=== PATIENT | female | born 2000 | race American Indian/Alaskan Native ===

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

== ENCOUNTER 2019-08-29 18:16 | Emergency (ER) | payer SELFPAY ==
[2019-08-29 19:25] VITALS: BP 130/89
--- NOTE | 2019-08-29 20:05 | Emergency Department Report ---
ED Rash HPI - HPI Chief Complaint: Skin Rash Stated Complaint: RASH ON MOUTH Time Seen by Provider: 08/29/19 20:00 Duration: 2 Days Suspected Cause: Unknown Rash Symptoms: Yes Myalgias (lips chopped), No Itching, No Facial Swelling, No Tongue/Oral Swelling, No Breathing Difficulties, No Choking Sensation, No Wheezing/Dyspnea, No Peeling, No Blistering, No Fever, No Lightheaded, No Malaise Severity: mild Other History: This is a 19-year-old female nontoxic well in appearance with no signs of distress presents to the ED with complaint of dry chopped lips x2 days. Patient denies any swelling, pus, or drainage. Denies any ulcers or lesions. Patient denies any other symptoms. Denies any fever, chills, headache, nausea, vomiting, chest pain or SOB. Denies any other complaints. ED Review of Systems ROS: Stated complaint: RASH ON MOUTH Other details as noted in HPI Constitutional: denies: chills, fever Eyes: denies: eye pain, eye discharge, vision change ENT: denies: ear pain, throat pain Respiratory: denies: cough, shortness of breath, wheezing Cardiovascular: denies: chest pain, palpitations Endocrine: no symptoms reported Gastrointestinal: denies: abdominal pain, nausea, diarrhea Genitourinary: denies: urgency, dysuria, discharge Musculoskeletal: denies: back pain, joint swelling, arthralgia Skin: denies: rash, lesions Neurological: denies: headache, weakness, paresthesias Psychiatric: denies: anxiety, depression Hematological/Lymphatic: denies: easy bleeding, easy bruising ED Past Medical Hx - Past Medical History Hx Hypertension: No Hx Heart Attack/AMI: No Hx Congestive Heart Failure: No Hx Diabetes: No Hx Deep Vein Thrombosis: No Hx Liver Disease: No Hx Renal Disease: No Hx Sickle Cell Disease: No Hx Seizures: No Hx Asthma: Yes (childhood) Hx COPD: No Hx HIV: No - Surgical History Hx Pacemaker: No Hx Internal Defibrillator: No - Social History Smoking Status: Never Smoker Substance Use Type: None - Medications Home Medications: Home Medications Medication Instructions Recorded Confirmed Last Taken Type Docusate Sodium [Colace] 100 mg PO BID PRN #60 capsule 12/06/18 Unknown Rx Ferrous Sulfate [Feosol 325 MG tab] 325 mg PO BID #60 tablet 12/06/18 Unknown Rx Ibuprofen [Motrin] 800 mg PO Q8HR PRN #30 tablet 12/06/18 Unknown Rx oxyCODONE /ACETAMINOPHEN [Percocet 1 tab PO Q6HR PRN #40 tablet 12/06/18 Unknown Rx 5/325] Rash Exam - Exam General: Vital signs noted. No distress. Alert and acting appropriately. HEENT: No Periorbital Edema, No Conjuctival Injection, No Chemosis, No Perioral Edema, No Tongue Edema, No Uvular Edema, No Compromised Airway, No Drooling Lungs: Yes Good Air Exchange (Normal Breath Sounds), No Wheezes, No Ronchi, No Stridor, No Cough, No Labored Respirations, No Retractions, No Use of Accessory Muscles, No Other Abnormal Lung Sounds Heart: Yes Regular, No Murmur Skin: Yes Other (slight dry lips with no ulcers or lesions. no redness. normal exam otherwise.), No Urticarial Rash, No Maculopapular Rash, No Morbilliform rash, No Bulla(e), No Excoriations, No Weeping, No Tenderness, No Erythema, No Edema, No Encrustations Other: Positive: Abdomen Normal, Neurologic Normal, Musculoskeletal Normal ED Course Vital Signs 08/29/19 19:22 Temperature 98.3 F Pulse Rate 85 Respiratory 18 Rate Blood Pressure 130/89 O2 Sat by Pulse 100 Oximetry - Reevaluation(s) Reevaluation #1: 08/29/19 20:02 Patient is speaking in full sentences with no signs of distress noted. ED Medical Decision Making - Medical Decision Making 19-year-old female that presents with nonmedical emergency. Patient is stable and was examined by me. Was educated on support care. Patient was instructed to Follow-up with a primary care doctor in 3-5 days or if symptoms worsen and continue return to emergency room as soon as possible. At time of discharge, the patient does not seem toxic or ill in appearance. No acute signs of distress noted. Patient agrees to discharge treatment plan of care. No further questions noted by the patient. Critical care attestation.: If time is entered above; I have spent that time in minutes in the direct care of this critically ill patient, excluding procedure time. ED Disposition Clinical Impression: Dry lips Disposition: MED SCREENING EXAM-LEFT Is pt being admited?: No Does the pt Need Aspirin: No Condition: Stable Additional Instructions: Follow-up with a primary care doctor in 3-5 days or if symptoms worsen and continue return to emergency room as soon as possible. Referrals: PRIMARY CARE, [Referring] - 3-5 Days JOE SALAZAR MD [Staff Physician] - 3-5 Days [facility] [Outside] - 3-5 Days
== END 2019-08-29 20:30 | disposition left against medical advice (07) ==
LOC: ED 18:16
DX: K13.0 Diseases of lips (principal); J45.909 Unspecified asthma, uncomplicated
CPT/HCPCS: 99281

== ENCOUNTER 2021-04-23 04:19 | Emergency (ER) | payer OTHER ==
[2021-04-23 04:52] VITALS: BP 126/80
[2021-04-23] MEDS ORDERED: SODIUM CHLORIDE 0.9% 1000 ML 1,000 ML IV ONE (04:54)
[2021-04-23] MEDS ORDERED: MORPHINE 4 MG/1 ML INJ IV ONE (04:54)
[2021-04-23] MEDS ORDERED: ONDANSETRON 4 MG/2 ML INJ IV ONE (04:55)
[2021-04-23 05:22] LABS: Basophils % (Auto) 0.3 % (0.0-1.8); Eosinophils # (Auto) 0.1 K/mm3 (0.0-0.4); Eosinophils % (Auto) 0.8 % (0.0-4.3); Hematocrit 34.5 % (30.3-42.9); Lymphocytes # (Auto) 2.6 K/mm3 (1.2-5.4); Lymphocytes % (Auto) 17.3 % (13.4-35.0); Mean Corpuscular HGB Conc 35 % (30-34); Mean Corpuscular Volume 92 fl (79-97); Monocytes % (Auto) 6.7 % (0.0-7.3); Platelet Count 451 K/mm3 (140-440); Red Blood Count 3.74 M/mm3 (3.65-5.03)
[2021-04-23 05:42] LABS: Alanine Aminotransferase 29 units/L (7-56); Albumin 4.1 g/dL (3.9-5); Blood Urea Nitrogen 9 mg/dL (7-17); Calcium 8.4 mg/dL (8.4-10.2); Hemolysis Index 108
[2021-04-23 05:55] LABS: BUN/Creatinine Ratio 18
--- NOTE | 2021-04-23 06:33 | Ultrasound Report ---
ULTRASOUND OBSTETRIC Indication: Severe pelvic pain, vaginal bleeding, 6 weeks gest Findings: There is possible gestational sac without evidence of a pole or yolk sac. This measures about 6 weeks and 3 days. The gestational sac measures about 2 mm in diameter Left ovary is normal and the right ovary contains a cystlike lesion measuring about 2 cm in diameter. There is minimal free pelvic fluid. Impression: Irregular hypoechoic sac within the lower uterine segment without evidence of pole or yolk sac. There is a nonspecific 2 cm cystlike lesion within the right ovary. Ultimately, early ectopic pregna ncy cannot be excluded. Close ultrasound follow-up recommended Minimal free pelvic fluid Signer Name: Christiano Pineda MD Signed: 04/23/2021 6:28 AM Workstation Name: [id number]
--- NOTE | 2021-04-23 06:46 | Emergency Department Report ---
<AILYN ORTIZ - Last Filed: 04/23/21 09:41> ED Female HPI - General Chief complaint: Vaginal Bleeding Stated complaint: POSS MISCARRIAGE - Related Data Previous Rx's Medication Instructions Recorded Last Taken Type Docusate Sodium [Colace] 100 mg PO BID PRN #60 capsule 12/06/18 Unknown Rx Ferrous Sulfate [Feosol 325 MG tab] 325 mg PO BID #60 tablet 12/06/18 Unknown Rx Ibuprofen [Motrin] 800 mg PO Q8HR PRN #30 tablet 12/06/18 Unknown Rx oxyCODONE /ACETAMINOPHEN [Percocet 1 tab PO Q6HR PRN #40 tablet 12/06/18 Unknown Rx 5/325] Allergies Allergy/AdvReac Type Severity Reaction Status Date / Time No Known Allergies Allergy Verified 04/23/21 04:54 ED Past Medical Hx - Medications Home Medications: Home Medications Medication Instructions Recorded Confirmed Last Taken Type Docusate Sodium [Colace] 100 mg PO BID PRN #60 capsule 12/06/18 Unknown Rx Ferrous Sulfate [Feosol 325 MG tab] 325 mg PO BID #60 tablet 12/06/18 Unknown Rx Ibuprofen [Motrin] 800 mg PO Q8HR PRN #30 tablet 12/06/18 Unknown Rx oxyCODONE /ACETAMINOPHEN [Percocet 1 tab PO Q6HR PRN #40 tablet 12/06/18 Unknown Rx 5/325] ED Medical Decision Making - Lab Data Result diagrams: 04/23/21 Unknown 04/23/21 Unknown ED Disposition Clinical Impression: Threatened miscarriage in early , Vaginal bleeding in patient after first trimester, Abdominal pain during in first trimester Disposition: 01 HOME / SELF CARE / HOMELESS Is pt being admited?: No Does the pt Need Aspirin: No Condition: Stable Instructions: Abdominal Pain During , [id number], Threatened Miscarriage, [id number], Vaginal Bleeding During , First Trimester, [id number] Additional Instructions: Please return to the emergency room or follow-up with your APPELLATE LAW CLERK on Monday to have repeat labs and possible repeat ultrasound. You are to be on strict pelvic rest which means no foreign body in vaginal area no extensive lifting jumping standing. No intercourse until you follow-up with your APPELLATE LAW CLERK. Tylenol is the only thing that you can have for pain. Referrals: GARRISON CR MD [Staff Physician] - 3-5 Days Time of Disposition: 09:42 Print Language: LITHUANIAN <ALEXIS COLBERT - Last Filed: 04/25/21 00:02> ED Female HPI - General Source: patient Mode of arrival: Ambulatory Limitations: No Limitations - History of Present Illness Initial comments: Patient is a A1 21-year-old -[place] female with no past medical history and who is approximately 6 weeks gestation presents to the ED with complaint of acute onset persistent severe pelvic pain with heavy vaginal bleeding with blood clots in the last 24 hours. Patient states that the pain is constant, persistent and worsening especially in the last 6 hours such that she has not been able to sleep. Patient denies syncope, dizziness, lightheadedness, dysuria, urinary frequency and urgency, traumatic injury or fall, heavy lifting, fever, chills, cough, sore throat, chest pain or shortness of breath, nausea and vomiting or low back pain. Complaint: vaginal bleeding, pelvic pain, other (Generalized weakness and fatigue) -: Sudden, days(s) (24) Location: suprapubic, other (Vaginal) Severity: severe Severity scale (0 -10): 8 Quality: cramping, sharp Consistency: constant Improves with: none Worsens with: none Are you Now?: Yes (Approximately 6 weeks gestation) Last Menstrual Period: 03/22/21 EDC: 12/27/21 Associated Symptoms: denies other symptoms, vaginal bleeding, abdominal pain (Suprapubic pain). denies: vaginal discharge, nausea/vomiting, fever/chills, headaches, loss of appetite, dysuria, hematuria, rash, seizure, shortness of breath, syncope, other - Related Data Sexually active: Yes : 3 Para: 1 A: 1 ED Review of Systems ROS: Stated complaint: POSS MISCARRIAGE Other details as noted in HPI Constitutional: denies: chills, fever Eyes: denies: eye pain, eye discharge, vision change ENT: denies: ear pain, throat pain Respiratory: denies: cough, shortness of breath, wheezing Cardiovascular: denies: chest pain, palpitations Endocrine: no symptoms reported Gastrointestinal: abdominal pain (Suprapubic pain). denies: nausea, vomiting, diarrhea Genitourinary: abnormal menses (Heavy vaginal bleeding). denies: urgency, dysuria, discharge Musculoskeletal: denies: back pain, joint swelling, arthralgia Skin: denies: rash, lesions Neurological: denies: headache, weakness, paresthesias Psychiatric: denies: anxiety, depression Hematological/Lymphatic: denies: easy bleeding, easy bruising ED Past Medical Hx - Past Medical History Hx Hypertension: No Hx Heart Attack/AMI: No Hx Congestive Heart Failure: No Hx Diabetes: No Hx Deep Vein Thrombosis: No Hx Liver Disease: No Hx Renal Disease: No Hx Sickle Cell Disease: No Hx Seizures: No Hx Asthma: Yes (childhood) Hx COPD: No Hx HIV: No - Surgical History Hx Pacemaker: No Hx Internal Defibrillator: No - Social History Smoking Status: Never Smoker ED Physical Exam - General Limitations: No Limitations General appearance: alert, in no apparent distress - Head Head exam: Present: atraumatic, normocephalic, normal inspection - Eye Eye exam: Present: normal appearance, PERRL, EOMI Pupils: Present: normal accommodation - ENT ENT exam: Present: normal exam, normal orophraynx, mucous membranes moist, TM's normal bilaterally, normal external ear exam - Neck Neck exam: Present: normal inspection, full ROM - Respiratory Respiratory exam: Present: normal lung sounds bilaterally. Absent: respiratory distress, wheezes, rales, rhonchi, chest wall tenderness, accessory muscle use, decreased breath sounds, prolonged expiratory, other - Cardiovascular Cardiovascular Exam: Present: regular rate, normal rhythm, normal heart sounds. Absent: systolic murmur, diastolic murmur, rubs, gallop - GI/Abdominal GI/Abdominal exam: Present: soft, tenderness (Palpable suprapubic tenderness), normal bowel sounds. Absent: distended, guarding, rebound, hyperactive bowel sounds, hypoactive bowel sounds, bruit, pulsatile mass - Bi-manual exam: Present: other (Pelvic exam deferred at this time, patient preference) - Extremities Exam Extremities exam: Present: normal inspection, full ROM, normal capillary refill - Back Exam Back exam: Present: normal inspection, full ROM. Absent: tenderness, CVA tenderness (R), CVA tenderness (L), muscle spasm, paraspinal tenderness, vertebral tenderness - Neurological Exam Neurological exam: Present: alert, oriented X3, CN II-XII intact, normal gait, reflexes normal - Psychiatric Psychiatric exam: Present: normal affect, normal mood, anxious - Skin Skin exam: Present: warm, dry, intact, normal color. Absent: rash ED Course Vital Signs 04/23/21 04:49 Temperature 97.8 F Pulse Rate 74 Respiratory 20 Rate Blood Pressure 126/80 O2 Sat by Pulse 100 Oximetry ED Medical Decision Making - Lab Data Result diagrams: 04/23/21 Unknown 04/23/21 Unknown - Radiology Data Radiology results: report reviewed, image reviewed [facility] [address] [place] [address] Ultrasound Report Signed Patient: JOSIE STACY MR#: [id number] : 2000 Acct:[id number] Age/Sex: 21 / F ADM Date: 04/23/21 Loc: ED Attending Dr: Ordering Physician: DK BERMUDEZ Date of Service: 04/23/21 Procedure(s): US OB transvaginal Accession Number(s): [id number] cc: DK BERMUDEZ ULTRASOUND OBSTETRIC Indication: Severe pelvic pain, vaginal bleeding, 6 weeks gest Findings: There is possible gestational sac without evidence of a pole or yolk sac. This measures about 6 weeks and 3 days. The gestational sac measures about 2 mm in diameter Left ovary is normal and the right ovary contains a cystlike lesion measuring about 2 cm in diameter. There is minimal free pelvic fluid. Impression: Irregular hypoechoic sac within the lower uterine segment without evidence of pole or yolk sac. There is a nonspecific 2 cm cystlike lesion within the right ovary. Ultimately, early ectopic cannot be excluded. Close ultrasound follow-up recommended Minimal free pelvic fluid Signer Name: Christiano Pineda MD Signed: 04/23/2021 6:28 AM Workstation Name: [id number] Transcribed By: BC Dictated By: Christiano Pineda MD Electronically Authenticated By: Christiano Pineda MD Signed Date/Time: 04/23/21627 DD/ 4 TD/TT: Print Cancel - Medical Decision Making This is a A1 21-year-old -[place] female with no past medical history and who is approximately 6 weeks gestation presents to the ED with complaint of acute onset persistent severe pelvic pain with heavy vaginal bleeding with blood clots in the last 24 hours. Patient states that the pain is constant, persistent and worsening especially in the last 6 hours such that she has not been able to sleep. In the ED, patient is alert and oriented x3 and is not in any distress. Patient is hemodynamically stable. Patient was treated for pain in the ED and also given normal saline 1 L IV bolus x1. Patient was also treated with antiemetics. Lab test results were reviewed and are all nonactiona ble except for acute leukocytosis of 15,300. The hCG quant was 9414.0 and there was mild hypokalemia of 3.4 mmol/L. Transvaginal ultrasound showed irregular hypoechoic sac within the lower uterine segment without evidence of pole or yolk sac. There is a nonspecific 2 cm cystlike lesion within the right ovary. Ultimately, early ectopic cannot be excluded. Close ultrasound follow- up recommended Minimal free pelvic fluid. On reevaluation, patient's pain is well controlled medication. Patient care was transferred to Ms. Cathy Ortiz PA-C at shift change at 0700 hrs. pending urinalysis test results. She shall review the urinalysis test results and disposition the patient accordingly. - Differential Diagnosis Threatened miscarriage; ectopic ; ovarian cyst; subchorionic bleed Critical care attestation.: If time is entered above; I have spent that time in minutes in the direct care of this critically ill patient, excluding procedure time. ED Disposition Is pt being admited?: No Does the pt Need Aspirin: No Time of Disposition: 06:52
[2021-04-23 09:09] LABS: Bilirubin,Urine NEG (Negative); Blood,Urine LG (Negative); Color,Urine Red (Yellow); Mucus,Urine 2+ /HPF; Urobilinogen,Urine < 2.0 mg/dL (<2.0)
[2021-04-23 09:11] LABS: RBC,Urine > 182.0 /HPF (0.0-6.0)
[2021-04-23 09:18] LABS: WBC,Urine < 1.0 /HPF (0.0-6.0)
== END 2021-04-23 09:48 | disposition home or self-care (01) ==
LOC: ED 04:19
DX: O20.0 Threatened abortion (principal); Z79.899 Other long term (current) drug therapy; Z3A.01 Less than 8 weeks gestation of pregnancy
CPT/HCPCS: 36415; 76801; 76817; 80053; 81001; 83690; 84702; 84703; 85025; 86900; 86901; 96361; 96374; 96375; 99284; J2270; J2405; J7030